=== PATIENT | female | born 1990 | race Two or more races ===

== ENCOUNTER 2022-02-18 14:48 | Emergency (ER) | payer BC, OTHER ==
[2022-02-18 15:01] VITALS: BP 110/64; PULSE 79; RESP 16
[2022-02-18] MEDS ORDERED: SODIUM CHLORIDE 0.9% 1,000 ML IV STA (15:09)
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
[2022-02-18 16:31] VITALS: TEMP 97.4
== END 2022-02-18 16:23 | disposition home or self-care (01) ==
LOC: SUPCPDRO 14:48 → EC 14:48
DX: T69.9XXA Effect of reduced temperature, unspecified, initial encounter (principal); Z88.0 Allergy status to penicillin; W00.0XXA Fall on same level due to ice and snow, initial encounter; Y92.009 Unspecified place in unspecified non-institutional (private) residence as the place of occurrence of the external cause
CPT/HCPCS: 99283